=== PATIENT | male | born 1960 | race Two or more races ===

== ENCOUNTER 2018-08-04 08:44 | Day surgery (SDC) | payer BC ==
[~2018-08-04] VITALS: Ht 167.6 cm; Wt 97.5 kg
[2018-08-04] VITALS (7 sets, daily range): BP systolic 119–137; BP diastolic 78–89
[~2018-08-04 08:44] MED LIST: Alfentanil 2ml Inj ONE
--- NOTE | 2018-08-04 09:08 | Pre-Procedure Note/Attestation ---
Pre-Procedure Note/Attestation Complete Prior to Procedure Planned Procedure: not applicable Procedure Narrative: egd/colonoscopy Indications for Procedure Pre-Operative Diagnosis: screening Attestation I attest that I discussed the nature of the procedure; its benefits; risks and complications; and alternatives (and the risks and benefits of such alternatives ), prior to the procedure, with the patient (or the patient's legal outside sales account representative). I attest that, if there was a reasonable possibility of needing a blood transfusion, the patient (or the patient's legal outside sales account representative) was given the [facility] standardized written summary, pursuant to the [employer]ia Blood Safety Act ([place] Health and Safety Code # 1645, as amended). I attest that I re-evaluated the patient just prior to the surgery and that there has been no change in the patient's H&P, except as documented below: Puneet Holly MD Aug 04, 2018 09:08
--- NOTE | 2018-08-04 09:08 | Short Stay Surgery H&P ---
History of Present Illness History of Present Illness Chief Complaint please recent office note HPI Jaydon Gentile is a 57 year old male who was admitted on for Screening Colonoscopy Plan Attestation Are the patient's medical conditions optimized for surgery? Puneet Holly MD Aug 04, 2018 09:08
[2018-08-04] MEDS ORDERED: NKM (09:42)
[2018-08-04] MEDS ORDERED: Propofol 200mg/20ml IV ONE (10:00)
[2018-08-04] MEDS ORDERED: Lidocaine 1% MPF 10mg/ml 5ml ONE (10:00)
[2018-08-04] MEDS ORDERED: LR 1000ml ONE (10:00)
[2018-08-04] MEDS ORDERED: LR 1000ml 1,000 ML IVLG SCH (10:01)
--- NOTE | 2018-08-04 10:10 | Anethesia Preoperative Eval ---
Anesthesia Pre-op PMH/ROS General Date of Evaluation: Aug 04, 2018 Time of Evaluation: 10:02 Anesthesiologist: Birdie ASA Score: ASA 3 Mallampati Score Class I : Soft palate, uvula, fauces, pillars visible Class II: Soft palate, uvula, fauces visible Class III: Soft palate, base of uvula visible Class IV: Only hard plate visible Mallampati Classification: Class II Surgeon: Elayne Diagnosis: Abd Pain Surgical Procedure: Colonoscopy Anesthesia History: none Family History: no anesthesia problems Allergies: Coded Allergies: No Known Allergies (Unverified , 08/04/18) Medications: see eMAR Patient NPO?: Yes Past Medical History Cardiovascular: Reports: HTN Other: obesity - BMI 36 Anesthesia Pre-op Phys. Exam Physician Exam Last Vital Signs Date Time Temp Pulse Resp B/P (MAP) Pulse Ox O2 Delivery O2 Flow Rate FiO2 08/04/18 09:42 Room Air 08/04/18 09:39 98.0 77 18 137/84 96 Constitutional: NAD Neurologic: CN 2-12 intact Cardiovascular: RRR Respiratory: CTA Gastrointestinal: S/NT/ND Airway Exam Mallampati Score: Class II MO: full ROM: full Teeth: missing, intact Anesthesia Pre-op A/P Risk Assessment & Plan Assessment: ASA 3 Plan: TIVA Status Change Before Surgery: No Abdifatah Packer MD Aug 04, 2018 10:10
[2018-08-04] MEDS ORDERED: fentaNYL 100 mcg/2 mL IV PRN (10:15)
[2018-08-04] MEDS ORDERED: oxyCODONE HCL/Acetaminophen 5/325mg ORAL PRN (10:15)
[2018-08-04] MEDS ORDERED: Meperidine 50mg/ml Inj(FOR RIGORS ONLY) IVP PRN (10:15)
[2018-08-04] MEDS ORDERED: DiphenhydrAMINE 50mg/ml Inj IVP PRN (10:15)
[2018-08-04] MEDS ORDERED: Metoclopramide 10mg/2ml Inj IVP PRN (10:15)
[2018-08-04] MEDS ORDERED: Midazolam 2mg/2ml Inj IVP PRN (10:15)
[2018-08-04] MEDS ORDERED: HYDROcodone/Acetamin 7.5/325 tab ORAL PRN (10:15)
[2018-08-04] MEDS ORDERED: LORazepam Inj 2mg/ml 1ml IV PRN (10:15)
[2018-08-04] MEDS ORDERED: Ketorolac 30mg Inj IV PRN ×2 (10:15)
[2018-08-04] MEDS ORDERED: Hydromorphone 0.5mg/0.5ml inj IVP PRN (10:15)
[2018-08-04] MEDS ORDERED: Atropine Sulfate 0.4mg/ml inj IVP PRN (10:15)
[2018-08-04] MEDS ORDERED: Norco 5mg/325mg tab ORAL PRN (10:15)
--- NOTE | 2018-08-04 10:20 | Immediate Post-Op Evaluation ---
Immediate Post-Op Evalulation Immediate Post-Op Evalulation Procedure: Colonoscopy Date of Evaluation: Aug 04, 2018 Time of Evaluation: 10:55 IV Fluids: 200 LR Blood Products: 0 Estimated Blood Loss: 1 Urinary Output: 0 Blood Pressure Systolic: 133 Blood Pressure Diastolic: 88 Pulse Rate: 76 Respiratory Rate: 16 O2 Sat by Pulse Oximetry: 100 Temperature (Fahrenheit): 97.9 Pain Score (1-10): 1 Nausea: No Vomiting: No Complications 0 Patient Status: awake, reacts, patent, none Hydration Status: adequate Abdifatah Packer MD Aug 04, 2018 10:20
--- NOTE | 2018-08-04 10:21 | 48 Hour Post Anesthesia Eval ---
Post Anesthesia Evaluation Procedure: Colonoscopy Date of Evaluation: Aug 04, 2018 Time of Evaluation: 12:57 Blood Pressure Systolic: 141 0: 89 Pulse Rate: 77 Respiratory Rate: 16 Temperature (Fahrenheit): 98.4 O2 Sat by Pulse Oximetry: 100 Airway: patent Nausea: No Vomiting: No Pain Intensity: 0 Hydration Status: adequate Cardiopulmonary Status: Stable Mental Status/LOC: patient returned to baseline Follow-up Care/Observations: 0 Post-Anesthesia Complications: 0 Follow-up care needed: ready to discharge Abdifatah Packer MD Aug 04, 2018 10:21
--- NOTE | 2018-08-04 10:36 | Short Stay Surgery H&P ---
History of Present Illness History of Present Illness Chief Complaint screening colonoscopy HPI Jaydon Gentile is a 57 year old male who was admitted on for Screening Colonoscopy Patient History Allergies: Coded Allergies: No Known Allergies (Unverified , 08/04/18) PAST MEDICAL HISTORY: (1) GERD (gastroesophageal reflux disease) (2) Abdominal pain Medication History Scheduled No Known Medications* (NKM - No Known Medications*), 0 ., (Reported) Review of Systems Cardiovascular: Reports: no symptoms Respiratory: Reports: no symptoms Skeletal: Reports: no symptoms Gastrointestinal: Reports: gastro esophageal reflux disease Genitourinary: Reports: no symptoms Neurologic: Reports: no symptoms Endocrine: Reports: no symptoms Hematologic: Reports: no symptoms Physical Exam Vital Signs Last Vital Signs Date Time Temp Pulse Resp B/P (MAP) Pulse Ox O2 Delivery O2 Flow Rate FiO2 08/04/18 09:42 Room Air 08/04/18 09:39 98.0 77 18 137/84 96 Skin: normal HENT: normal Heart: normal Lungs: normal Abdomen: normal Extremities: normal Plan Plan of Care colonoscopy Attestation Are the patient's medical conditions optimized for surgery? Attestation Response: yes Puneet Holly MD Aug 04, 2018 10:36
--- NOTE | 2018-08-04 10:37 | Endoscopy Procedure Note ---
Endoscopy Procedure Note General Indication for Procedure: sceening Procedures Performed: colonoscopy Operative Findings/Diagnosis: 2 polyps Specimen: yes Pt Tolerated Procedure Well: Yes Estimated Blood Loss: none Anesthesia Anesthesiologist: fela Anesthesia: MAC Inserted Devices Implant(s) used?: No Quality Quality of Bowel Preparation: Good Did scope reach the cecum?: Yes Was there any complications?: No GI Core Measures 50 yrs or older w/o bx or poly: No 10yrs. F/U not recommended: Yes If not recommended, why?: Above average risk 10 yrs. F/U needed: Yes 18 years or older w/prev. colo: No Puneet Holly MD Aug 04, 2018 10:37
--- NOTE | 2018-08-04 14:46 | Procedure Note ---
DATE OF PROCEDURE: 08/04/2018 SURGEON: Puneet Holly M.D. ANESTHESIOLOGIST: Abdifatah Packer M.D. PROCEDURE: Colonoscopy with biopsy and snare polypectomy. INSTRUMENT: Olympus adult flexible colonoscope. INDICATION: Screening colonoscopy evaluation. The procedure, risks, benefits, and possible consequences, including hemorrhage, aspiration, perforation and infection, and alternative treatments, were explained to the patient/legal guardian by Dr. Puneet Holly and the patient/legal guardian understood and accepted these risks. DESCRIPTION OF PROCEDURE: After informed consent was obtained and the patient was adequately sedated. First, rectal exam was performed, which was normal. Then, the scope was advanced from the rectum to the cecum and then subsequently to the terminal ileum. Quality of prep was good. The patient had multiple at least three ulcerations in the terminal ilium, but the rest of the terminal ilium and mucosa were grossly within normal limits. Biopsy from this ulceration was obtained to rule out Crohn's disease. In the colon, they were two polyps in the transverse colon, one of them measured roughly about 7 mm, pedunculated, removed with the snare polypectomy technique in two pieces. The patient has a diminutive polyp next to this polyp, which was removed with the cold biopsy forceps technique. There was no further polyp seen in this colonoscopy examination. Retroflexion in the rectum showed evidence of medium-sized nonbleeding internal hemorrhoids. SUMMARY OF FINDINGS: 1. Two colonic polyps removed, see above for details. 2. Few ulceration in the terminal ileum, status post biopsy. 3. Internal hemorrhoids. RECOMMENDATIONS: 1. Follow up biopsy results and treat accordingly. 2. We will going to send serology for Crohn's disease and have the patient to follow as an outpatient. 3. Repeat colonoscopy in five years given two polyps. I want to thank, Dr. Sarkis Monterroso, for this kind referral. Puneet Holly M.D. DR: KAYLIN JOB#: [id number] CC: Sarkis Monterroso M.D.
--- NOTE | 2018-08-04 18:22 | Cardiology Report ---
APPROVED REPORT EKG Measurement Heart [id number] WV [id number] Normal sinus rhythm Normal ECG
== END 2018-08-04 12:05 | disposition home or self-care (01) ==
LOC: GAS 08:44
DX: Z12.11 Encounter for screening for malignant neoplasm of colon (principal); D12.3 Benign neoplasm of transverse colon; K63.3 Ulcer of intestine; K52.9 Noninfective gastroenteritis and colitis, unspecified; K21.9 Gastro-esophageal reflux disease without esophagitis; I10 Essential (primary) hypertension; E66.9 Obesity, unspecified; Z68.36 Body mass index [BMI] 36.0-36.9, adult
CPT/HCPCS: 45380; 45385; 93005; J2250; J2704; J3490; 94003; 94150